=== PATIENT | female | born 1970 | race Caucasian/White ===

== ENCOUNTER 2020-06-21 21:52 | Emergency (ER) | payer SELFPAY ==
[~2020-06-21] VITALS: Ht 154.9 cm; Wt 65.0 kg
[2020-06-21 21:57] VITALS: Ht 154.9 cm; Wt 65.0 kg
[2020-06-22 00:30] VITALS: BP 116/87
== END 2020-06-22 00:30 | disposition home or self-care (01) ==
LOC: ED 21:52
DX: S29.012A Strain of muscle and tendon of back wall of thorax, initial encounter (principal); X58.XXXA Exposure to other specified factors, initial encounter; Y93.89 Activity, other specified; Y92.89 Other specified places as the place of occurrence of the external cause; Y99.8 Other external cause status
CPT/HCPCS: J1885